=== PATIENT | male | born 1980 | race Two or more races ===

== ENCOUNTER → 2025-06-06 | Outpatient (CLI) | payer MEDICAID, SELFPAY ==
--- NOTE | 2025-06-06 14:02 | XR_ITS ---
Examination: Foot, left, 3 views Technique: AP, oblique, lateral views foot, 3 views Date and time of exam: June 06, 2025, 1410 hours INDICATIONS: Left foot pain this month. FINDINGS: Mild osteoarthritis first metatarsophalangeal joint and first tarsal metatarsal joint No cortical bone destruction No fracture 10 mm plantar 4 mm posterior bony calcaneal spurs IMPRESSION: Osteoarthritis as above Large plantar bony calcaneal spur
== END | disposition home or self-care (01) ==
PROVIDERS: PCP Family Medicine; Referring Provider Student in an Organized Health Care Education/Training Program; Visit Provider Student in an Organized Health Care Education/Training Program
DX: M77.32 Calcaneal spur, left foot (principal); M19.072 Primary osteoarthritis, left ankle and foot
CPT/HCPCS: 73630